=== PATIENT | male | born 1955 | race African-American/Black ===

== ENCOUNTER 2017-10-08 23:44 | Emergency (ER) | payer MEDICAID, OTHER ==
[~2017-10-08] VITALS: Ht 177.8 cm; Wt 100.0 kg
[2017-10-09 00:04] VITALS: BP 170/80
[2017-10-09] MEDS ORDERED: SODIUM CHLORIDE 0.9% 1,000 ML IV ONE ×2 (00:30→03:15)
[2017-10-09] MEDS ORDERED: ONDANSETRON HCL 4MG/2ML VIAL IV STA (00:30)
[2017-10-09 01:31] LABS: BASOPHILS % 0.4 % (0.0-2.0); EOSINOPHILS % 0.7 % (0.0-5.0); HEMATOCRIT. 45.3 % (42.0-52.0); HEMOGLOBIN. 15.1 g/dL (14.0-18.0); LYMPHOCYTES % 23.9 % (20.0-50.0); MEAN CORPUSCULAR VOLUME 90.1 fL (80.0-94.0); MEAN PLATELET VOLUME 10.1 fl (7.4-10.4); MONOCYTES % 10.4 % (2.0-8.0); NEUTROPHILS % 64.6 % (40.0-76.0); PLATELET 115 x1000/uL (130-400); RED BLOOD CELL COUNT 5.03 mill/uL (4.7-6.1); RED CELL DISTRIBUTION WIDTH 13.9 % (11.6-14.6)
[2017-10-09 01:36] LABS: CHLORIDE 109 mEq/L (98-107)
[2017-10-09 01:45] LABS: CARBON DIOXIDE 31 mEq/L (21-32)
== END 2017-10-09 03:55 | disposition home or self-care (01) ==
LOC: ER 23:44
DX: R11.2 Nausea with vomiting, unspecified (principal)
CPT/HCPCS: 36415; 80053; 83690; 85025; 93005; 96374; 99285; J2405; J7030; Z7610

== ENCOUNTER 2022-08-05 08:40 | Emergency (ER) | payer MEDICARE, MEDICAID ==
[~2022-08-05] VITALS: Ht 177.8 cm; Wt 92.0 kg
[2022-08-05 08:44] VITALS: BP 143/75
[2022-08-05] MEDS ORDERED: ACETAMINOPHEN 325MG TABLET PO ONE (09:00)
[2022-08-05] MEDS ORDERED: TOPUD PO (10:09)
== END 2022-08-05 10:31 | disposition home or self-care (01) ==
LOC: ER 08:40
DX: M25.462 Effusion, left knee (principal); I12.9 Hypertensive chronic kidney disease with stage 1 through stage 4 chronic kidney disease, or unspecified chronic kidney disease; N18.9 Chronic kidney disease, unspecified
CPT/HCPCS: 29505; 73560; 99283; L1830